=== PATIENT | male | born 1980 | race Caucasian/White ===

== ENCOUNTER 2020-04-29 01:33 | Emergency (ER) | payer BC ==
--- NOTE | 2020-04-29 01:39 | ED Physician Documentation ---
PD HPI HEAD INJURY - Stated complaint Stated Complaint: HEAD/BACK INJ - History obtained from History obtained from: Patient - History of Present Illness Mechanism of head injury: Fell Where head injury occurred: Home Timing - onset: Enter time (00:30) Location of injury: Left Quality of pain: Pain Associated symptoms: No: LOC, AMS, Nausea / vomiting, Paresthesias, Ear drainage Symptoms worsen with: Palpation Contributing factors: No: Anticoagulated Recently seen: Not recently seen - Additional information Additional information: at approximately 12:30 AM today, patient was at home standing on a couch while replacing batteries in a smoke detector. The couch tipped, causing patient to fall. Patient struck the left side of his face on a coffee table and the left lower back on ground; he c/o pain in these two areas. He denies LOC, denies visual change. He denies neck, back, extremity pain. Review of Systems Eyes: reports: Reviewed and negative Ears: reports: Ear pain (external ear (pinna) pain and swelling). denies: Loss of hearing, Drainage/discharge, Tinnitus/ringing Throat: denies: Dental pain / toothache GI: denies: Abdominal Pain, Nausea, Vomiting Skin: reports: Reviewed and negative Musculoskeletal: reports: Back pain Neurologic: reports: Headache, Head injury. denies: Generalized weakness, Focal weakness, Numbness, Altered mental status, LOC PD PAST MEDICAL HISTORY - Past Medical History Past Medical History: Yes Cardiovascular: Hypertension Endocrine/Autoimmune: Type 1 diabetes - Present Medications Home Medications: Ambulatory Orders Medication Instructions Recorded Confirmed Cyclobenzaprine [Flexeril] 10 mg PO TID PRN #20 tab 04/29/20 Hydrochlorothiazide mg PO 04/29/20 Insulin Lispro 100 unit SQ 04/29/20 Lisinopril [Prinivil] mg PO 04/29/20 - Allergies Allergies/Adverse Reactions: Allergies Allergy/AdvReac Type Severity Reaction Status Date / Time Penicillins Allergy Hives Verified 04/29/20 01:44 - Living Situation Living Situation: reports: With spouse/s.o. Living Arrangement: reports: At home PD ED PE NORMAL - Vitals Vital signs reviewed: Yes - General General: Alert and oriented X 3, No acute distress, Well developed/nourished - HEENT HEENT: PERRL (slight anisocoria (right pupil 1mm larger than left)), EOMI, Other (mild swelling, erythema of left pinna; trace abrasion inner aspect of helix near fossa) - Neck Neck: No bony TTP - Cardiac Cardiac: RRR, No murmur - Respiratory Respiratory: No respiratory distress, Clear bilaterally - Abdomen Abdomen: Soft, Non tender - Back Back: No CVA TTP, No spinal TTP, Other (mild left paralumbar tenderness but no bony tenderness including vertebral, posterior rib, and posterior bony pelvis) - Neuro Neuro: Alert and oriented X 3, kiln tender 2-12 intact, No motor deficit, No sensory deficit, Normal speech PD ED PE EXPANDED - HEENT HEENT: Other (mild TTP left mandiblular ramus without crepitus. no intraoral bleeding, lacerations. FROM at TMJ (opens/closes jaw without discomfort; palpable click with this, which he says is normal for him. Denies sensation of dental malalignment). normal left external auditory canal and left TM) Results - Vitals Vitals: Vital Signs - 24 hr 04/29/20 01:35 Temperature 36.0 C L Heart Rate 95 Respiratory 16 Rate Blood Pressure 163/93 H O2 Saturation 100 Oxygen O2 Source Room air PD MEDICAL DECISION MAKING - ED course Complexity details: considered differential, d/w patient ED course: TTP mandibular ramus but excellent ROM of jaw (open/close) without obvious discomfort. Exam does not suggest mandibular fracture and thus imaging not indicated at this time. he has mild left ear (pinna) swelling and tenderness without focal swelling to suggest auricular hematoma. Left external auditory canal and TM are normal. there is no facial tenderness other than mandibular ramus on left. back TTP is limited to the musculature of left lower back with no tenderness of ribs, vertebra, or bony pelvis. he has no abdominal tenderness. He is comfortable with treating symptoms and no testing at this time. Departure - Departure Disposition: 01 Home, Self Care Clinical Impression: Fall, Facial contusion, Contusion of lower back Condition: Good Instructions: ED Contusion Back, ED Contusion Face Follow-Up: LEAH RODRIGES MD [Primary Care Provider] - Within 1 week Prescriptions: Cyclobenzaprine [Flexeril] 10 mg PO TID PRN #20 tab PRN Reason: Spasms Forms: Activity restrictions Discharge Date/Time: 04/29/20 02:27
[2020-04-29 01:44] VITALS: BP 163/93
[2020-04-29] MEDS ORDERED: IBUPROFEN 600 MG TABLET PO STA (02:03)
[2020-04-29] MEDS ORDERED: CYCLOBENZAPRINE 10 MG TABLET PO STA (02:03)
[2020-04-29] MEDS ORDERED: oxyCODONE/ACET 5/325 Prepack 4 PO STA (02:04)
== END 2020-04-29 02:27 | disposition home or self-care (01) ==
LOC: ED 01:33
DX: S00.83XA Contusion of other part of head, initial encounter (principal); S30.0XXA Contusion of lower back and pelvis, initial encounter; S00.412A Abrasion of left ear, initial encounter; W08.XXXA Fall from other furniture, initial encounter; Y93.89 Activity, other specified; Y92.009 Unspecified place in unspecified non-institutional (private) residence as the place of occurrence of the external cause; I10 Essential (primary) hypertension; E10.9 Type 1 diabetes mellitus without complications
CPT/HCPCS: 99282; 99284; A9270